=== PATIENT | female | born 1995 | race Caucasian/White ===

== ENCOUNTER 2019-07-29 06:03 | Emergency (ER) | payer BC ==
[~2019-07-29] VITALS: Ht 182.8 cm; Wt 99.8 kg
[~2019-07-29 06:03] MED LIST: ?ANTIBIOTIC; BACTRIM DS 8001 TA1 PO; BROMFED DM COU118 M1 PO; CEPHALEXIN500 M1 PO; CLARITIN10 MG PO; CORDROL20 MG PO; DEMEROL50 MG PO; DUO-KAPS1 CAP PO; EPI EZ PEN1 MG/ML IM; KEFLEX500 MG PO; MEDROL DOSEPAK4 MG PO; MOTRIN600 MG PO; NAPROSYN500 MG PO; NKHM; PEPCID20 MG PO; TRAMADOL HCL50 MG PO; TYLENOL W/ CODE30 ML PO; VIBRA-TAB100 MG PO; VICODIN1 TAB; XARELTO10 PO; [UNRECOGNIZED DRUG - OTHER] IJ; [UNRECOGNIZED DRUG - REMARK]
[2019-07-29] MEDS ORDERED: DEPO-TESTO100 MG/1 M IM (06:12)
[2019-07-29] MEDS ORDERED: VYVANSE40 MG PO (06:12)
[2019-07-29 06:39] LABS: BASO % 0.2 % (0.0-1.0); EOS # 0.1 10*3/uL (0.0-0.4); HEMATOCRIT 51.1 % (37.0-47.0); HEMOGLOBIN 17.2 g/dl (12.0-16.0); LYMPH # 1.4 10*3/uL (1.3-4.4); LYMPH % 10.8 % (27.0-41.0); MEAN CELL VOLUME 91.6 fl (81.0-99.0); MEAN CORPUSCULAR HGB 30.8 pg (27.0-31.0); MEAN CORPUSCULAR HGB CONC 33.7 g/dl (33.0-37.0); MEAN PLATELET VOLUME 9.7 fl (9.6-12.3); MONO # 1.1 10*3/uL (0.1-1.0); MONO % 8.9 % (3.0-9.0); NEUT % 78.8 % (47.0-73.0); PLATELET COUNT AUTOMATED 215 10*3/uL (130-400); RED BLOOD COUNT 5.58 10*6/uL (4.10-5.10); RED CELL DISTRI WIDTH 13.2 % (0-14.5); WHITE BLOOD COUNT 12.7 10*3/uL (4.8-10.8)
[2019-07-29 07:01] LABS: ALKALINE PHOSPHATASE 62 U/L (45-117); BUN 14 mg/dl (7-24); CHLORIDE 106 mmol/L (98-107); CREATININE 1.18 mg/dL (0.55-1.02); LIPASE 257 U/L (73-393); POTASSIUM 3.5 mmol/L (3.5-5.1); SGOT/AST 16 IU/L (3-35); SODIUM 140 mmol/L (136-145); TOTAL PROTEIN 7.8 gm/dL (6.4-8.2)
[2019-07-29 07:02] LABS: SGPT/ALT 21 U/L (12-78)
[2019-07-29 07:11] LABS: BETA-HCG, QUANT < 1.0 mIU/mL (1-3)
[2019-07-29 07:49] LABS: BILIRUBIN NEGATIVE (NEGATIVE); BLOOD NEGATIVE (NEGATIVE); CLARITY CLEAR (CLEAR); COLOR YELLOW (YELLOW); GLUCOSE NEGATIVE (NEGATIVE); KETONE NEGATIVE (NEGATIVE); LEUKO ESTERASE NEGATIVE (NEGATIVE); NITRITE NEGATIVE (NEGATIVE); SPECIFIC GRAVITY >= 1.030 (1.005-1.030); UROBILINOGEN 0.2 E.U./dl (0.2-1.0)
[2019-07-29 08:05] LABS: BACTERIA 1+; MUCOUS 2+
[2019-07-29] MEDS ORDERED: ZOFRAN4 MG PO (08:05)
== END 2019-07-29 08:48 | disposition home or self-care (01) ==
LOC: ED 06:03
PROVIDERS: Emergency Medicine Emergency Medical Services
DX: K52.9 Noninfective gastroenteritis and colitis, unspecified (principal); R42 Dizziness and giddiness; Z91.013 Allergy to seafood; Z79.899 Other long term (current) drug therapy

== ENCOUNTER 2020-01-14 13:23 | Emergency (ER) | payer BC ==
[~2020-01-14] VITALS: Wt 81.6 kg
[~2020-01-14 13:23] MED LIST changes: +DEPO-TESTO100 MG/1 M IM; +VYVANSE40 MG PO; +ZOFRAN4 MG PO
[2020-01-14 14:21] LABS: BASO # 0.1 10*3/uL (0.0-0.1); BASO % 0.6 % (0.0-1.0); EOS # 0.3 10*3/uL (0.0-0.4); EOS % 2.9 % (1.0-4.0); LYMPH # 2.2 10*3/uL (1.3-4.4); MEAN CELL VOLUME 90.9 fl (81.0-99.0); MEAN CORPUSCULAR HGB 31.2 pg (27.0-31.0); MEAN CORPUSCULAR HGB CONC 34.3 g/dl (33.0-37.0); MEAN PLATELET VOLUME 9.8 fl (9.6-12.3); MONO # 0.9 10*3/uL (0.1-1.0); MONO % 10.9 % (3.0-9.0); NEUT # 5.2 10*3/uL (2.3-7.9); NEUT % 60.3 % (47.0-73.0); PLATELET COUNT AUTOMATED 219 10*3/uL (130-400); RED BLOOD COUNT 4.62 10*6/uL (4.10-5.10); RED CELL DISTRI WIDTH 13.3 % (0-14.5); WHITE BLOOD COUNT 8.6 10*3/uL (4.8-10.8)
[2020-01-14 14:31] LABS: ACT PARTIAL THROMBO TIME 27.3 SECONDS (20.0-32.1); INTERNATIONAL NORM RATIO 1.1 (2.0-3.5)
[2020-01-14 14:38] LABS: ALBUMIN 3.7 gm/dl (3.1-4.5); ALKALINE PHOSPHATASE 51 U/L (45-117); BUN 12 mg/dl (7-24); CHLORIDE 107 mmol/L (98-107); CREATININE 1.03 mg/dL (0.55-1.02); LIPASE 128 U/L (73-393); POTASSIUM 4.2 mmol/L (3.5-5.1); SGOT/AST 10 IU/L (3-35); SGPT/ALT 21 U/L (12-78); SODIUM 139 mmol/L (136-145); TOTAL PROTEIN 7.1 gm/dL (6.4-8.2)
[2020-01-14 14:42] LABS: TROPONIN I < 0.015 ng/ml (<0.045)
[2020-01-14 15:57] LABS: BILIRUBIN NEGATIVE (NEGATIVE); CLARITY CLEAR (CLEAR); COLOR YELLOW (YELLOW); GLUCOSE NEGATIVE (NEGATIVE); KETONE NEGATIVE (NEGATIVE)
[2020-01-14 15:58] LABS: BACTERIA 3+; BLOOD NEGATIVE (NEGATIVE); EPITHELIAL CELLS TNTC; LEUKO ESTERASE 3+ (NEGATIVE); NITRITE NEGATIVE (NEGATIVE); PH 8.5 (5.0-9.0); SPECIFIC GRAVITY 1.005 (1.005-1.030); UROBILINOGEN 0.2 E.U./dl (0.2-1.0)
== END 2020-01-14 16:20 | disposition home or self-care (01) ==
LOC: ED 13:23 → EDSEX 13:26 → ED 16:20
PROVIDERS: Nurse Practitioner Family
DX: E86.0 Dehydration (principal); Z91.013 Allergy to seafood; Z79.899 Other long term (current) drug therapy

== ENCOUNTER 2023-02-27 09:58 | Emergency (ER) | payer SELFPAY ==
[~2023-02-27] VITALS: Ht 182.8 cm; Wt 74.8 kg
[2023-02-27 10:25] LABS: BASO % 0.3 % (0.0-1.0); EOS # 0.4 10*3/uL (0.0-0.4); HEMATOCRIT 45.2 % (42.0-52.0); LYMPH # 2.7 10*3/uL (1.3-4.4); LYMPH % 28.8 % (27.0-41.0); MEAN CELL VOLUME 91.7 fl (80.0-94.0); MEAN CORPUSCULAR HGB 30.6 pg (27.0-31.0); MEAN CORPUSCULAR HGB CONC 33.4 g/dl (33.0-37.0); MEAN PLATELET VOLUME 9.2 fl (9.6-12.3); MONO # 1.3 10*3/uL (0.1-1.0); MONO % 13.5 % (3.0-9.0); NEUT % 53.1 % (47.0-73.0); PLATELET COUNT AUTOMATED 319 10*3/uL (130-400); RED BLOOD COUNT 4.93 10*6/uL (4.50-5.90); RED CELL DISTRI WIDTH 13.2 % (0-14.5); WHITE BLOOD COUNT 9.5 10*3/uL (4.8-10.8)
[2023-02-27 10:29] LABS: BILIRUBIN Negative (Negative); BLOOD Negative (Negative); CLARITY Turbid (Clear); COLOR Yellow (Yellow); GLUCOSE Negative (Negative); KETONE Negative (Negative); LEUKO ESTERASE Negative (Negative); NITRITE Negative (Negative)
[2023-02-27 10:46] LABS: ACT PARTIAL THROMBO TIME 27.1 SECONDS (20.0-32.1)
[2023-02-27 10:47] LABS: ALKALINE PHOSPHATASE 54 U/L (46-116); BUN 12 mg/dl (9-23); CHLORIDE 103 mmol/L (98-107); LIPASE 68 U/L (12-53); POTASSIUM 3.9 mmol/L (3.4-5.1); SGPT/ALT 10 U/L (10-49); TOTAL PROTEIN 7.7 gm/dL (6.0-8.0)
[2023-02-27 11:04] LABS: BACTERIA TRACE
[2023-02-27] MEDS ORDERED: PEPCID20 MG PO (12:59)
[2023-02-27] MEDS ORDERED: REGLAN10 M1 PO (12:59)
== END 2023-02-27 13:14 | disposition home or self-care (01) ==
LOC: ED 09:58
PROVIDERS: Internal Medicine
DX: K29.70 Gastritis, unspecified, without bleeding (principal); Z91.013 Allergy to seafood; Z98.890 Other specified postprocedural states

== ENCOUNTER 2024-10-03 02:39 | Emergency (ER) | payer SELFPAY ==
[~2024-10-03] VITALS: Ht 180.3 cm; Wt 81.6 kg
[~2024-10-03 02:39] MED LIST changes: +REGLAN10 M1 PO
[2024-10-03] MEDS ORDERED: Tdap Vaccine 0.5 ML SYR (Adult Vaccine) IM ONE (03:15)
[2024-10-03] MEDS ORDERED: DERMABOND 1 EA APPL T ONE (03:47)
== END 2024-10-03 04:17 | disposition home or self-care (01) ==
LOC: ED 02:39
DX: S61.512A Laceration without foreign body of left wrist, initial encounter (principal); Z91.013 Allergy to seafood; Z98.890 Other specified postprocedural states; W26.8XXA Contact with other sharp object(s), not elsewhere classified, initial encounter; Y93.89 Activity, other specified; Y92.89 Other specified places as the place of occurrence of the external cause; Y99.0 Civilian activity done for income or pay

== ENCOUNTER 2025-03-22 09:40 | Emergency (ER) | payer OTHER ==
[~2025-03-22] VITALS: Ht 182.8 cm; Wt 74.8 kg
[2025-03-22] MEDS ORDERED: MIXED AMPHETAMI30 MG PO (10:36)
[2025-03-22 10:59] LABS: BASO # 0.0 10*3/uL (0.0-0.1); BASO % 0.5 % (0.0-1.0); EOS # 0.0 10*3/uL (0.0-0.4); EOS % 0.4 % (1.0-4.0); MEAN CELL VOLUME 91.1 fl (80.0-94.0); MEAN CORPUSCULAR HGB 29.9 pg (27.0-31.0); MEAN PLATELET VOLUME 9.0 fl (9.6-12.3); MONO # 0.2 10*3/uL (0.1-1.0); MONO % 3.0 % (3.0-9.0); NEUT # 6.4 10*3/uL (2.3-7.9); NEUT % 83.4 % (47.0-73.0); NUCLEATED RED BLOOD CELL 0.0 % (0.0-0.0); NUCLEATED RED BLOOD CELL 0.0 10*3/uL (0.0-0.0); PLATELET COUNT AUTOMATED 275 10*3/uL (130-400); RED CELL DISTRI WIDTH 13.2 % (0-14.5)
[2025-03-22 11:25] LABS: BUN 10 mg/dl (9-23)
[2025-03-22] MEDS ORDERED: MEDROL DOSEPAK4 MG PO (13:46)
== END 2025-03-22 14:14 | disposition home or self-care (01) ==
LOC: ED 09:40
PROVIDERS: Internal Medicine
DX: L25.9 Unspecified contact dermatitis, unspecified cause (principal); R22.41 Localized swelling, mass and lump, right lower limb; Z91.013 Allergy to seafood